=== PATIENT | male | born 1990 | race Caucasian/White ===

== ENCOUNTER 2021-04-09 08:14 | Emergency (ER) | payer OTHER ==
[~2021-04-09] VITALS: Ht 175.3 cm; Wt 90.7 kg
[~2021-04-09 08:14] MED LIST: CIPRO250 MG PO; IBUPROFEN 800800 MG PO; NORCO 5-325 TA1 EACH PO; NORFLEX100 MG PO; PENICILLIN VK500 M1 PO
[2021-04-09 11:48] LABS: ABSOLUTE MONOCYTES 0.2 thou/uL (0.0-1.2); ABSOLUTE NEUTROPHILS 5.1 thou/uL (1.6-8.1); BASOPHILS 0.1 %; HEMATOCRIT 34.5 % (42.0-52.0); HEMOGLOBIN 11.5 gm/dL (14.0-18.0); LYMPHOCYTES 15.5 %; MCH 28.3 pg (26.0-34.0); MCHC 33.3 g/dL (28.0-37.0); MCV 84.7 fL (80.0-100.0); MONOCYTES 2.5 %; MPV 8.7 fl. (7.2-11.1); NUCLEATED RBCS 0 /100WBC; PLATELET COUNT* 231 thou/uL (150-400); POLYS 81.9 %; RBC 4.07 mil/uL (4.50-6.00); RDW-CV 13.7 % (10.5-14.5); WBC 6.2 thou/uL (4.0-11.0)
[2021-04-09 11:54] LABS: CALCIUM 7.9 mg/dL (8.5-10.1); CREATININE 0.7 mg/dL (0.6-1.3); POTASSIUM 3.2 mmol/L (3.5-5.1)
[2021-04-09 11:58] LABS: ALBUMIN 2.7 g/dL (3.4-5.0); TOTAL BILIRUBIN 0.3 mg/dL (<0.1-1.0); TOTAL PROTEIN 7.2 g/dL (6.4-8.2)
[2021-04-09] MEDS ORDERED: FLEXERIL PO (12:03)
[2021-04-09] MEDS ORDERED: KEPPRA 500 MG500 M1 PO (12:03)
[2021-04-09 12:16] VITALS: BP 121/82
--- NOTE | 2021-04-10 15:57 | NUR ---
Pt called and left VM with CM requesting assistance in finding PCP. Pt states he was unable to make followup appt with Neurologist without referral. Referred pt to [facility] and educated him that [facility] has financial assistance programs he may quilify for. [phone] Pt stated friend referred him to PCP in [place] and he is sending a referral to Neuro for him. But wanted the [facility] info and #, which was given to him.
== END 2021-04-09 12:17 | disposition home or self-care (01) ==
LOC: M.ERS 08:14
PROVIDERS: Nurse Practitioner Family
DX: S00.532A Contusion of oral cavity, initial encounter (principal); S00.212A Abrasion of left eyelid and periocular area, initial encounter; G40.909 Epilepsy, unspecified, not intractable, without status epilepticus; G93.0 Cerebral cysts; Z90.89 Acquired absence of other organs; W19.XXXA Unspecified fall, initial encounter; Y93.89 Activity, other specified; Y92.811 Bus as the place of occurrence of the external cause; Y99.8 Other external cause status